=== PATIENT | male | born 2000 ===

== ENCOUNTER 2021-02-01 22:46 | Emergency (ER) | payer OTHER ==
[~2021-02-01] VITALS: Ht 172.7 cm; Wt 86.2 kg
[~2021-02-01 22:46] MED LIST: ALBU90OI INH; AZIT100SU PO; IBUP100S; IBUP100S PO; RXONDA4ODT MM
== END 2021-02-02 01:19 | disposition home or self-care (01) ==
LOC: ER 22:46
DX: U07.1 COVID-19 (principal)
CPT/HCPCS: 71046; 99284-25